=== PATIENT | female | born 1985 | race Caucasian/White ===

== ENCOUNTER → 2020-08-04 15:29 | Outpatient (CLI) | payer OTHER, SELFPAY ==
--- NOTE | ~2020-08-04 | MR_ITS ---
EXAMINATION: MR foot LT wo con DATE: 08/04/2020 16:33 INDICATION: Sesamoiditis at the left foot with pain, swelling and bruising after running. TECHNIQUE: Magnetic resonance imaging (MRI) of the left fore/mid foot was performed without intraveno us contrast. Sequences included sagittal T1-weighted FSE, sagittal fluid sensitive FSE STIR, coronal PD-weighted FS FSE, coronal T1-weighted FSE, axial PD-weighted FS FSE, and axial PD-weighted FSE. COMPARISON: Left foot MR dated 04/04/2016 FINDINGS: Bone alignment is normal. Again seen is prominent marrow edema at first metatarsal sesamoids. This in cludes the larger fibular sesamoid as well as both the distal and more prominently at the proximal zeyad dy of the bipartite tibial sesamoid. Again seen is decreased T1 signal at the mid to distal aspect of the fibular sesamoid suggesting some sclerosis or fragmentation. There is mild osteoarthritis at the first metatarsophalangeal joint including mild subarticular edema along the central ridge at the plantar aspect of the head of the first metatarsal. Otherwise normal marrow signal throughout. No fracture, erosions or pathologic marrow replacing process. Persistent sm all likely reactive effusion at the first metatarsophalangeal joint. No erosions to suggest an inflam matory arthritis. There is new thickening and increased signal of the distal aspect of the first metatarsophalangeal me dial collateral ligament complex at its insertion to the medial base of the first proximal phalanx. T here is also thickening and increased signal of less than fluid intensity at the medial side of the p lantar plate with interval increase in the distance between the base of the proximal phalanx and the distal moiety of the tibial sesamoid. No significant surrounding edema or discrete fluid signal inten sity tear defect likely which suggests this represents scarring related to chronic partial tear. The Lisfranc ligament complex as well as the remaining collateral ligament complex at the metatarsoph alangeal and interphalangeal joints are normal. Flexor and extensor tendons appear normal with no ass ociated tenosynovitis. IMPRESSION: 1. Increased fluid signal in the first metatarsal fibular and bipartite tibial sesamoids consistent w ith sesamoiditis. 2. Interval development of likely chronic degeneration/partial tear at the distal aspect of the first metatarsophalangeal medial collateral ligament complex and medial side of the plantar plate. 3. 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 Reviewed, dictated and finalized at location B. IMPRESSION: 1. Increased fluid signal in the first metatarsal fibular and bipartite tibial sesamoids consistent with sesamoiditis. 2. Interval development of likely chronic degeneration/partial tear at the dist al aspect of the first metatarsophalangeal medial collateral ligament complex a nd medial side of the plantar plate. 3. 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
== END ==
PROVIDERS: Visit Provider Podiatrist Foot & Ankle Surgery
DX: M77.8 Other enthesopathies, not elsewhere classified (principal); M19.072 Primary osteoarthritis, left ankle and foot
CPT/HCPCS: 73718

== ENCOUNTER → 2021-08-03 13:37 | Outpatient (CLI) | payer OTHER, SELFPAY ==
--- NOTE | ~2021-08-03 | XR_ITS ---
XR cervical spine 4-5V DATE: 08/03/2021 INDICATION: Neck pain radiating to shoulders TECHNIQUE: AP, open-mouth, lateral and bilateral oblique views COMPARISON: None FINDINGS: Cervical spine which may be due to spasm. C1 and C2 are normally aligned and the odontoid process is intact.. No fracture or dislocation, carla d facet or prevertebral soft tissue swelling. There is moderate loss of interspace height at C5-6 and mild uncovertebral joint spurring on the righ t at C5-6. IMPRESSION: Straightening of the cervical spine Degenerative disease and mild right uncovertebral joint spurring at C5-6 Reviewed, dictated and finalized at location A.
== END ==
PROVIDERS: PCP Family Medicine; Visit Provider Family Medicine
DX: M50.322 Other cervical disc degeneration at C5-C6 level (principal)
CPT/HCPCS: 72050

== ENCOUNTER 2024-12-18 15:12 | Outpatient (CLI) | payer OTHER, SELFPAY ==
--- NOTE | ~2024-12-18 | XR_ITS ---
CHEST RADIOGRAPH, PA AND LATERAL CLINICAL HISTORY: Z01.818 - Encounter for other preprocedural examination . COMPARISON: 01/25/2016 TECHNIQUE: PA and lateral views of the chest. FINDINGS The cardiomediastinal silhouette is unremarkable. The lungs are clear. IMPRESSION: No focal infiltrate or effusion. Reviewed, dictated and finalized at location A.
== END 2024-12-18 15:13 | disposition home or self-care (01) ==
LOC: MICIMG 15:15
PROVIDERS: PCP Family Medicine
DX: Z01.818 Encounter for other preprocedural examination (principal)
CPT/HCPCS: 71046